=== PATIENT | female | born 1970 | race Two or more races ===

== ENCOUNTER 2019-11-10 23:47 | Emergency (ER) | payer MEDICARE, MEDICAID ==
[~2019-11-10] VITALS: Ht 172.7 cm; Wt 68.0 kg
[~2019-11-10 23:47] MED LIST: AMPI500C8; DIVA500T53; ESCI20TA; HYDR-1421; RISP2TAB59
[2019-11-11 02:18] LABS: Basophils # (auto) 0.1 uL; Basophils % (auto) 0.7 % (0.0-2.0); Eosinophils # (auto) 0.2 uL; Eosinophils % (auto) 2.8 % (0.0-7.0); Hematocrit 38.3 % (36.0-46.0); Hemoglobin 13.2 g/dL (12.2-16.2); Lymphocytes # (auto) 1.9 uL; Lymphocytes % (auto) 24.5 % (10.0-50.0); Mean Corpuscular Hemoglobin 32.1 pg (28.0-32.0); Mean Corpuscular Hgb Conc. 34.3 g/dL (32.0-36.0); Mean Corpuscular Volume 93.5 fL (80.0-100.0); Monocytes # (auto) 0.5 uL; Monocytes % (auto) 6.8 % (0.0-12.0); Neutrophils % (auto) 65.2 % (37.0-80.0); Platelet Count (auto) 296 10^3/uL (140-450); White Blood Cell 7.6 10^3/uL (4.4-10.8)
[2019-11-11 02:37] LABS: Albumin 3.6 g/dL (3.4-5.0); Calcium 8.2 mg/dL (8.5-10.1); Potassium 3.4 mmol/L (3.5-5.1)
[2019-11-11 02:44] LABS: BUN/Creatinine Ratio 23.9; Bilirubin, Total 0.2 mg/dL (0.2-1.0); INR 0.96 (0.9-1.15); Partial Thromboplastin Time 31.1 sec (23.64-32.05); Total Protein 7.2 g/dL (6.4-8.2)
[2019-11-11] MEDS ORDERED: SODIUM CHLORIDE 0.9% 1,000 ML IV ONE (07:38)
[2019-11-11 09:57] VITALS: BP 122/74
[2019-11-11 10:16] LABS: Urine Bacteria NONE SEEN /hpf (None Seen); Urine Blood Negative /uL (Negative); Urine Specific Gravity 1.011 (1.001-1.035); Urine WBC 3 /hpf (0 - 5)
== END 2019-11-11 11:02 | disposition home or self-care (01) ==
LOC: ER 23:47 → EDBD 23:47 → ER 11-11 11:02
DX: R53.1 Weakness (principal); N39.0 Urinary tract infection, site not specified; E87.6 Hypokalemia; F17.210 Nicotine dependence, cigarettes, uncomplicated; Z98.51 Tubal ligation status; Z90.49 Acquired absence of other specified parts of digestive tract
CPT/HCPCS: 36415; 71045; 80053; 81001; 83605; 83880; 84484; 85025; 85610; 85730; 87804; 99284; J7030